=== PATIENT | male | born 1985 | race African-American/Black ===

== ENCOUNTER 2018-08-09 12:56 | Emergency (ER) | payer SELFPAY ==
--- NOTE | 2018-08-09 13:27 | EDM.PDOC ---
ED HPI GENERAL MEDICAL PROBLEM - General Chief Complaint: Upper Extremity Injury/Pain Stated Complaint: DIZZY Time Seen by Provider: 08/09/18 13:08 Source of Information: Reports: Patient History Limitations: Reports: No Limitations - History of Present Illness INITIAL COMMENTS - FREE TEXT/NARRATIVE: HISTORY AND PHYSICAL: History of present illness: Patient is a 33-year-old male who presents to the emergency room with complaints of left shoulder pain. He states the pain started this morning. Denies any injury, trauma or falls. During my evaluation the patient is resting in the chair with his eyes closed and is not wanting to answer questions related to his presentation today. Patient denies any fever, chills, headache, change in vision, syncope or near syncope. Denies any chest pain, back pain, shortness of breath or cough. Denies any abdominal pain, nausea, vomiting, diarrhea, constipation or dysuria. Has not noted any blood in urine or stool. Patient has been eating and drinking appropriately. Review of systems: As per history of present illness and below otherwise all systems reviewed and negative. Past medical history: As per history of present illness and as reviewed below otherwise noncontributory. Surgical history: As per history of present illness and as reviewed below otherwise noncontributory. Social history: See social history for further information Family history: As per history of present illness and as reviewed below otherwise noncontributory. Physical exam: General: Well-developed and well-nourished 33-year-old -[place] male. Alert and oriented. Nontoxic appearing and in no acute distress. HEENT: Atraumatic, normocephalic, pupils equal and reactive bilaterally, negative for conjunctival pallor or scleral icterus, mucous membranes moist, TMs normal bilaterally, throat clear, neck supple, nontender, trachea midline. No drooling or trismus noted. No meningeal signs. No hot potato voice noted. Lungs: Clear to auscultation, breath sounds equal bilaterally, chest nontender. Heart: S1S2, regular rate and rhythm without overt murmur Abdomen: Soft, nondistended, nontender. Skin: Intact, warm, dry. No lesions or rashes noted. Extremities: Atraumatic, moves all extremities per self without difficulty or deficits, negative for cords or calf pain. Neurovascular unremarkable. Neuro: Awake, alert, oriented. Cranial nerves II through XII unremarkable. Cerebellum unremarkable. Motor and sensory unremarkable throughout. Exam nonfocal. Notes: The triage nurse states she had difficulty having the patient answer his health history questions as well. He is trying to make jokes and avoid answering any personal questions or give further information. Physical examination is within normal limits. Due to patient's vague symptoms and limited information is giving me surrounding the shoulder pain, I will do lab work along with an EKG. As informed by nursing staff that the patient stated he wanted to elope from the emergency room. Vital signs are stable prior to leaving. Diagnostics: Declines Therapeutics: Declines Prescription: None Impression: Left shoulder pain Elopement from the emergency department Plan: Eloped Definitive disposition and diagnosis as appropriate pending reevaluation and review of above. - Related Data Allergies Allergy/AdvReac Type Severity Reaction Status Date / Time No Known Allergies Allergy Verified 08/09/18 13:05 Home Meds: Home Meds . [No Known Home Meds] 08/09/18 [History] Past Medical History Other HEENT History: PT refuses to answer questions Other Cardiovascular History: PT refuses to answer questions Other Respiratory History: PT refuses to answer questions Other Gastrointestinal History: PT refuses to answer questions Other Genitourinary History: PT refuses to answer questions Other Musculoskeletal History: PT refuses to answer questions Other Neuro History: PT refuses to answer questions Other Psychiatric History: PT refuses to answer questions Other Endocrine/Metabolic History: PT refuses to answer questions Other Dermatologic History: PT refuses to answer questions - Infectious Disease History Other Infectious Disease History: PT refuses to answer questions Social & Family History - Family History Family Medical History: Unobtainable Other HEENT Family History: PT refuses to answer questions - Tobacco Use Tobacco Use Comment: PT refuses to answer questions - Caffeine Use Other Caffeine Use: PT refuses to answer questions - Recreational Drug Use Other Recreational Drug Type: PT refuses to answer questions Review of Systems - Review of Systems Review Of Systems: ROS reveals no pertinent complaints other than HPI. ED EXAM, GENERAL - Physical Exam Exam: See Below (See dictation) Course - Vital Signs Last Recorded V/S: Last Vital Signs Temp Pulse 101 H 08/09/18 13:06 Resp 18 08/09/18 13:06 BP 102/70 08/09/18 13:06 Pulse Ox 95 08/09/18 13:06 - Orders/Labs/Meds Orders: Active Orders 24 hr Category Date Time Status EKG 12 Lead [EKG Documentation Completion] [RC] STAT Care 08/09/18 13:14 Inactive Chest 1V Frontal [CR] Stat Exams 08/09/18 13:14 Stop Req COMPREHENSIVE METABOLIC PN,CMP [CHEM] Stat Lab 08/09/18 13:14 Stop Req TROPONIN I [CHEM] Stat Lab 08/09/18 13:14 Stop Req Departure - Departure Time of Disposition: 13:34 Disposition: Eloped 07 Clinical Impression: Eloped from emergency department Left shoulder pain Qualifiers: Chronicity: unspecified Qualified Code(s): M25.512 - Pain in left shoulder - Discharge Information Referrals: PCP,None [Primary Care Provider] - - My Orders Last 24 Hours: My Active Orders 08/09/18 13:14 EKG 12 Lead [EKG Documentation Completion] [RC] STAT Chest 1V Frontal [CR] Stat COMPREHENSIVE METABOLIC PN,CMP [CHEM] Stat TROPONIN I [CHEM] Stat - Assessment/Plan Last 24 Hours: My Active Orders 08/09/18 13:14 EKG 12 Lead [EKG Documentation Completion] [RC] STAT Chest 1V Frontal [CR] Stat COMPREHENSIVE METABOLIC PN,CMP [CHEM] Stat TROPONIN I [CHEM] Stat
== END 2018-08-09 13:19 | disposition left against medical advice (07) ==
LOC: MW.ED 12:56
DX: M25.512 Pain in left shoulder (principal)
CPT/HCPCS: 99282; 99283

== ENCOUNTER 2021-07-31 13:21 | Emergency (ER) | payer SELFPAY | END 2021-07-31 18:15 | LOC: MW.ED 13:21 | DX: S00.531A Contusion of lip, initial encounter (principal); S60.512A Abrasion of left hand, initial encounter; Y04.0XXA Assault by unarmed brawl or fight, initial encounter | CPT/HCPCS: 70450; 70450-26; 731302650; 73130-50; 82947; 99284-25 ==